=== PATIENT | female | born 1960 | race Hispanic/Latino ===

== ENCOUNTER 2025-02-27 01:41 | Emergency (ER) | payer BC ==
[~2025-02-27] VITALS: Ht 162.6 cm; Wt 104.3 kg
[~2025-02-27 01:41] MED LIST: AMLO-258 PO; ASPI-1005 PO; BENA10TA77 PO; CALC-911 PO; CIDE500T PO; DAPA1TAB3 PO; DOCU-116 PO; FISH1CAP63 PO; GLIM4TAB36 PO; HYDR-4060 PO; MULT-1192 PO; PRAV20TA59 PO; ZINC220T4 PO
[2025-02-27 02:14] LABS: IMMATURE GRANULOCYTE ABSOLUTE 0.04 K/uL (0-1); NUCLEATED RED BLOOD CELLS 0.0 % (0.0-0.19); PLATELET COUNT (AUTO) 307 K/uL (130-400); RED BLOOD CELL COUNT(AUTO) 5.06 MIL/uL (4.00-5.50); RED CELL DISTRIBUTION WIDTH 14.4 % (11.0-15.5); WHITE BLOOD COUNT (AUTO) 9.7 K/uL (4.8-10.8)
--- NOTE | 2025-02-27 02:19 | ERN ---
General Chief Complaint: Other Problems Stated Complaint: BLEEDING GUMS Time Seen by MD: 01:51 History of Present Illness Initial Comments 64-year-old female history of diabetes, hypertension, hyperlipidemia here for evaluation of tooth bleeding. Patient recently had eaten the procedure earlier today when she had five teeth extracted by her dentist. She was doing well until the area started bleeding nonstop. They have been unable to control the bleeding when no pressure was applied. They were concerned about the extent of the bleeding and decided to come to the emergency room for evaluation Allergies: Coded Allergies: No Known Allergies (Unverified Allergy, Unknown, 10/08/24) Home Meds Active Scripts Docusate Sodium (Colace) 100 Mg Capsule, 1 CAP PO BID for 30 Days, #60 CAP 0 Refills Prov:MOLLY HANCOCK MD 10/10/24 Hydrocodone/Acetaminophen (Hydrocodon-Acetaminophen 5-325) 5 Mg-325 Mg Tablet, 1 TAB PO Q4H PRN for MODERATE PAIN (4-6), #28 TAB 0 Refills Prov:MOLLY HANCOCK MD 10/10/24 Reported Medications Aspirin (ASPIRIN 81MG CHEW TAB) 81 Mg Tab.chew, 1 TAB PO DAILY for 30 Days, #30 TAB 0 Refills 10/08/24 Calcium Carbonate/Vitamin D3 (Calcium 1,000 + D3 Caplet) 1,000 Mg-20 Tablet, 1 TAB PO DAILY for 30 Days, #30 TAB 0 Refills 10/08/24 Cider Vinegar (Apple Cider Vinegar) 500 Mg Tablet, 500 MG PO ACDINNER, TAB 10/08/24 Fish Oil/Dha/Epa (Fish Oil 1,200 mg Fish Oil) 1,200 Mg-144 Mg-216 Mg Capsule, 3 CAP PO DAILY for 30 Days, #90 CAP 0 Refills 10/08/24 Zinc Sulfate (Zinc) 50 Mg Zinc (220 Mg) Tablet, 1 TAB PO DAILY for 30 Days, #30 TAB 0 Refills 10/08/24 Multivitamin (Multi-Vitamin Daily) 1 Each Tablet, 1 TAB PO DAILY for 30 Days, #30 TAB 0 Refills 10/08/24 Dapagliflozin/Metformin HCl (Xigduo Xr 5 mg-1,000 mg Tablet) 5 Mg-1,000 Mg Tab.bp.24h, 1 TAB PO DAILY for diabetes for 30 Days, #30 TAB 0 Refills 10/08/24 Glimepiride (Glimepiride) 4 Mg Tablet, 4 MG PO BIDAC, TAB 10/08/24 Pravastatin Sodium (Pravastatin Sodium) 20 Mg Tablet, 20 MG PO HS, TAB 10/08/24 Benazepril HCl (Benazepril HCl) 10 Mg Tablet, 10 MG PO DAILY, TAB 10/08/24 Amlodipine Besylate (Amlodipine Besylate) 10 Mg Tablet, 10 MG PO DAILY for 30 Days, #30 TAB 0 Refills 10/08/24 Past Medical History Past Medical History: High Cholesterol, Hypertension Past Surgical History: Other Surgical History Other: RT HIP, ORAL EENTM: (+) mouth pain, (+) tooth pain Physical Exam General Appearance: (+) no apparent distress Orientation: (+) alert, (+) oriented x 3 Eye: bilateral eye normal inspection, bilateral eye PERRL, bilateral eye EOMI Ear, Nose, Throat: (+) hearing grossly normal, (+) normal ENT inspection, (+) moist mucous membraine Ear, Nose, Throat Comment Mild active bleeding from five upper molar Neck: (+) normal inspection, (+) supple Respiratory: (+) chest non-tender, (+) lungs clear Heart: (+) regular; (-) murmur Vascular: (+) no edema, (+) normal peripheral pulse Gastrointestinal: (+) soft, (+) non-tender Neurologic/Psychiatric: (+) normal speech, (+) no motor defecits Skin: (+) normal color, (+) warm/dry Results Laboratory and Microbiology Lab and Micro Result Laboratory Tests Test 02/27/25 02:04 White Blood Count 9.7 K/uL (4.8-10.8) Red Blood Count 5.06 MIL/uL (4.00-5.50) Hemoglobin 13.7 g/dL (12.0-16.0) Hematocrit 42.5 % (36-48) Mean Corpuscular Volume 84.0 fL (79-99) Mean Corpuscular Hemoglobin 27.1 pg (27.0-33.0) Mean Corpuscular Hemoglobin Concent 32.2 g/dL (32.0-36.0) Red Cell Distribution Width 14.4 % (11.0-15.5) Platelet Count 307 K/uL (130-400) Mean Platelet Volume 10.1 fL (7.5-10.5) Immature Granulocyte % (Auto) 0.4 % (0-1) Neutrophils (%) (Auto) 68.6 % (40.0-77.0) Lymphocytes (%) (Auto) 20.2 % (21.0-51.0) L Monocytes (%) (Auto) 7.7 % (3.0-13.0) Eosinophils (%) (Auto) 2.1 % (0.0-8.0) Basophils (%) (Auto) 1.0 % (0.0-5.0) Neutrophils # (Auto) 6.6 K/uL (1.8-7.7) Lymphocytes # (Auto) 2.0 K/uL (1.0-4.8) Monocytes # (Auto) 0.8 K/uL (0.1-1.0) Eosinophils # (Auto) 0.20 K/uL (0.00-0.70) Basophils # (Auto) 0.10 K/uL (0.00-0.20) Absolute Immature Granulocyte (auto 0.04 K/uL (0-1) Nucleated Red Blood Cells 0.0 % (0.0-0.19) Prothrombin Time 10.6 SEC (9.6-11.6) Prothromb Time International Ratio 1.00 (0.85-1.15) Activated Partial Thromboplast Time 29.9 SEC (26.3-35.5) MDM 64-year-old female here for evaluation of teeth bleeding. She is on no blood thinners at this time. We will get basic blood work to ensure she is not anemic. Disposition pending results of labs and clinical improvement. Tx a bandage used to stop bleeding. Lidocaine with the epi use. ED Course Orders Procedure Category Date Status Time Cbc With Differential LAB 02/27/25 Complete 01:56 Partial LAB 02/27/25 Complete Thromboplastin Time 01:56 Prothrombin Time With LAB 02/27/25 Complete INR 01:56 Tranexamic Acid PHA 02/27/25 Complete (Cyklokapron) 02:19 Current Medications Medications (Trade) Dose Ordered Sig/Asad Route PRN Reason Start Time Stop Time Status Last Admin Dose Admin Tranexamic Acid (Cyklokapron) 1,000 mg AD STAT TP 02/27/25 02:19 02/27/25 02:23 DC 02/27/25 03:01 Vital Signs Date Time Temp Pulse Resp B/P (MAP) Pulse Ox O2 Delivery O2 Flow Rate FiO2 02/27/25 05:02 97.9 94 18 108/70 97 Room Air* 0 21 02/27/25 02:22 97.9 94 18 152/74 97 Room Air* 0 21 02/27/25 01:42 97.0 93 20 177/97 98 Room Air DX & DISP Disposition: Discharge (Due to of both) Departure Impression: Primary Impression: Bleeding post tooth extraction Condition: Stable Referrals: ZAKIA MILLS MD (PCP) PARRISH BLACKBURN MD Feb 27, 2025 02:19
[2025-02-27 02:25] LABS: INR 1.0 (0.85-1.15)
[2025-02-27] MEDS: TRANEXAMIC ACID 1000MG/10ML TP STA (03:01)
[2025-02-27] MEDS: TRANEXAMIC ACID 1000MG/10ML TP ONE (05:46)
[2025-02-27] MEDS: LIDOCAINE 1%-EPI 1:100,000 20 ML VIAL ONE (05:47)
[2025-02-27] MEDS: LIDOCAINE 1%-EPI 1:100,000 20 ML VIAL IJ ONE (05:47)
[2025-02-27 05:56] VITALS: BP 115/75; PULSE 87; RESP 18; TEMP 97.8; O2SAT 97
== END 2025-02-27 05:58 | disposition home or self-care (01) ==
LOC: EDH 01:41
DX: K91.840 Postprocedural hemorrhage of a digestive system organ or structure following a digestive system procedure (principal); E11.9 Type 2 diabetes mellitus without complications; I10 Essential (primary) hypertension; E78.00 Pure hypercholesterolemia, unspecified; Z79.82 Long term (current) use of aspirin; Z79.84 Long term (current) use of oral hypoglycemic drugs; Y84.8 Other medical procedures as the cause of abnormal reaction of the patient, or of later complication, without mention of misadventure at the time of the procedure
CPT/HCPCS: 99283; 85025; 85610; 85730; 36415; J3490 ×3